=== PATIENT | female | born 1990 | race Caucasian/White ===

== ENCOUNTER 2016-11-22 02:17 | Emergency (ER) | payer OTHER ==
[~2016-11-22] VITALS: Ht 170.2 cm; Wt 63.5 kg
--- NOTE | 2016-11-22 02:20 | NUR ---
ESCORTED BY S/O TO USE THE BATHROOM
--- NOTE | 2016-11-22 02:20 | NUR ---
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 PER PATIENT SHE "TOOK A COUPLE OF XANAX 2MG WITH ETOH" AND PT STATES, "I JUST FEEL SLEEPY." PATIENT IS AAOX3, AMBULATORY WITH STEADY GAIT. VSS. BREATHING EVEN AND UNLABORED. PATIENT DENIES ANY S/I OR HI. SAFETY MEASURES INITIATED. GOWNED. AWAITING FOR ER MD BROWN.
[2016-11-22] MEDS ORDERED: VENL37.55 PO (02:38)
[2016-11-22] MEDS ORDERED: ALPR0.5T PO (02:38)
[2016-11-22] MEDS ORDERED: IV NS 0.9% 1,000 ML ONE (02:39)
[2016-11-22] MEDS ORDERED: IV SET PRIMARY 1 EA INFUS.SET MC ONE (02:39)
--- NOTE | 2016-11-22 02:40 | NUR ---
DR MONGE AT BEDSIDE FOR EVAL.
--- NOTE | 2016-11-22 02:50 | NUR ---
STARTED A SALINE LOCK ON THE LAC G20
[2016-11-22] MEDS ORDERED: IV NS 0.9% 1,000 ML BAG IV ONE (03:00)
--- NOTE | 2016-11-22 04:47 | NUR ---
IV removed. Catheter intact and site benign. Pressure and 4x4 applied to site. No bleeding noted. Patient discharged to home in stable condition. Written and verbal after care instructions given. Patient verbalizes understanding of instruction. Patient is ambulatory with steady gait, accompanied by friend. No further complaints.
[2016-11-22 04:48] VITALS: BP 110/60
== END 2016-11-22 04:48 | disposition home or self-care (01) ==
LOC: ER 02:20
DX: T42.4X1A Poisoning by benzodiazepines, accidental (unintentional), initial encounter (principal); Y92.89 Other specified places as the place of occurrence of the external cause; F32.9 Major depressive disorder, single episode, unspecified; F41.9 Anxiety disorder, unspecified
CPT/HCPCS: 96360; 99284; A4606; J7030; Z7610